=== PATIENT | female | born 1940 | race Caucasian/White ===

== ENCOUNTER 2017-02-09 11:56 | Emergency (ER) | payer MEDICARE, OTHER ==
[~2017-02-09 11:56] MED LIST: ELIQUIS5 MG PO; LEVAQUIN750 MG PO; PREDNISONE5 M1 PO
[2017-02-09 14:01] LABS: HEMOGLOBIN 15.1 gm/dl (12.3-15.3); RED BLOOD COUNT 4.39 M/UL (4.00-5.10); WHITE BLOOD COUNT 6.7 K/UL (4.5-11.0)
== END 2017-02-09 17:42 | disposition home or self-care (01) ==
LOC: ER1 11:56
PROVIDERS: Physician Assistant
DX: J18.9 Pneumonia, unspecified organism (principal); E11.9 Type 2 diabetes mellitus without complications; I10 Essential (primary) hypertension; J44.9 Chronic obstructive pulmonary disease, unspecified; I48.91 Unspecified atrial fibrillation; I25.2 Old myocardial infarction; M19.90 Unspecified osteoarthritis, unspecified site; Z87.891 Personal history of nicotine dependence; Z79.1 Long term (current) use of non-steroidal anti-inflammatories (NSAID); Z79.82 Long term (current) use of aspirin; Z79.899 Other long term (current) drug therapy
CPT/HCPCS: 36415; 71020; 80053; 81001; 82550; 82553; 83690; 83874; 84484; 85025; 93005; 94664; 96374; 99284; J1885

== ENCOUNTER 2020-12-27 16:57 | Inpatient (IN) | payer MEDICARE, OTHER ==
[~2020-12-27] VITALS: Ht 165.1 cm; Wt 120.7 kg
[~2020-12-27 16:57] MED LIST changes: +ALBUTEROL0.63 MG/3 INH; +ALBUTEROL2.5 MG/3 M INH; +ASPIR 8181 MG PO; +AUGMENTIN 875-1 EACH PO; +AZITHROMYCIN250 MG PO; +BACTRIM DS TAB1 EACH PO; +CEFDINIR300 MG PO; +CLARITIN10 MG PO; +CRESTOR5 MG PO; +ELIQUIS 5 MG TAB5 MG PO; +IRON18 MG PO; +JANUMET 50-5001 EACH PO; +KLOR-CON 1010 MEQ PO; +LANTUS INS100 UTS/M1 SC; +LASIX20 MG PO; -LEVAQUIN750 MG PO; +LOPRESSOR 25 MG25 MG PO; +MEDROL4 MG PO; +MIRALAX17 GM PO; +MYCOSTATIN CREA15 GM TOP; +MYRBETRIQ25 MG PO; +NEURONTIN 100100 MG PO; +NORCO 5-325 TA1 EACH PO; +OMNICEF 300 MG300 MG PO; -PREDNISONE5 M1 PO; +SINGULAIR10 MG PO; +SYMBICORT 16010.2 GM INH; +ULTRAM50 MG PO; +VALSARTAN320 MG PO; +VENTOLIN HFA 66.7 GM INH; +VIT PO; +VITAMIN B PO; +VITAMIN B-122500 MCG SL; +VOLTAREN100 GM TP; +ZANTAC150 MG PO; +ZOFRAN ODT 4 MG4 MG PO
[2020-12-27 19:14] LABS: HEMOGLOBIN 17.9 gm/dl (12.3-15.3)
[2020-12-27 19:36] LABS: BUN/CREATININE RATIO 18 (0-10)
[2020-12-27] MEDS ORDERED: LIORESAL TAB 1010 MG PO (23:56)
--- NOTE | 2020-12-28 17:08 | NUR ---
ROOM AIR SAT 88%
[2020-12-28 18:31] LABS: HEMOGLOBIN 16.9 gm/dl (12.3-15.3); RED BLOOD COUNT 4.76 M/UL (4.00-5.10); WHITE BLOOD COUNT 8.1 K/UL (4.5-11.0)
[2020-12-28 18:49] LABS: BUN/CREATININE RATIO 22 (0-10)
[2020-12-29 02:22] LABS: HEMOGLOBIN 16.3 gm/dl (12.3-15.3); RED BLOOD COUNT 4.56 M/UL (4.00-5.10); WHITE BLOOD COUNT 7.3 K/UL (4.5-11.0)
[2020-12-30 04:08] LABS: HEMOGLOBIN 15.9 gm/dl (12.3-15.3); RED BLOOD COUNT 4.52 M/UL (4.00-5.10)
[2020-12-30 04:35] LABS: WHITE BLOOD COUNT 11.2 K/UL (4.5-11.0)
[2020-12-30 11:07] LABS: HEMOGLOBIN 16.2 gm/dl (12.3-15.3); RED BLOOD COUNT 4.59 M/UL (4.00-5.10); WHITE BLOOD COUNT 8.4 K/UL (4.5-11.0)
[2020-12-31 03:37] LABS: BUN/CREATININE RATIO 29 (0-10)
[2020-12-31 03:42] LABS: RED BLOOD COUNT 4.52 M/UL (4.00-5.10); WHITE BLOOD COUNT 6.4 K/UL (4.5-11.0)
[2021-01-02 06:25] LABS: HEMOGLOBIN 16.7 gm/dl (12.3-15.3); RED BLOOD COUNT 4.74 M/UL (4.00-5.10); WHITE BLOOD COUNT 7.3 K/UL (4.5-11.0)
--- NOTE | 2021-01-02 20:27 | NUR ---
DAUGHTER, MYSELF, AND SHAN QUINTERO HAVE ALL TRIED TO GET PATIENTT TO DRINK [employer] AND PATIENT WILL NOT TAKE
[2021-01-03 09:11] LABS: RED BLOOD COUNT 4.51 M/UL (4.00-5.10)
[2021-01-03 09:15] LABS: WHITE BLOOD COUNT 10.1 K/UL (4.5-11.0)
[2021-01-03 09:32] LABS: BUN/CREATININE RATIO 32 (0-10)
[2021-01-04 06:37] LABS: HEMOGLOBIN 16.1 gm/dl (12.3-15.3); RED BLOOD COUNT 4.59 M/UL (4.00-5.10)
[2021-01-04 06:38] LABS: WHITE BLOOD COUNT 6.2 K/UL (4.5-11.0)
[2021-01-04 07:03] LABS: BUN/CREATININE RATIO 28 (0-10)
[2021-01-05] MEDS ORDERED: DOXYCYCLINE HY100 M2 PO (12:23)
== END 2021-01-05 17:17 | DRG 91 ==
LOC: ER1 16:57 → PROG CARE 21:18 → CDU 21:18 → MED SURG 4 21:18 → PROG CARE 23:01 → MED SURG 4 12-29 20:21
PROVIDERS: Internal Medicine; Student in an Organized Health Care Education/Training Program; ADMIT Internal Medicine
DX: G92 Toxic encephalopathy (principal); J96.21 Acute and chronic respiratory failure with hypoxia; J96.22 Acute and chronic respiratory failure with hypercapnia; N17.9 Acute kidney failure, unspecified; J44.1 Chronic obstructive pulmonary disease with (acute) exacerbation; I48.19 Other persistent atrial fibrillation; I50.32 Chronic diastolic (congestive) heart failure; Z20.822 Contact with and (suspected) exposure to COVID-19; Z68.41 Body mass index [BMI] 40.0-44.9, adult; N30.90 Cystitis, unspecified without hematuria; B96.20 Unspecified Escherichia coli [E. coli] as the cause of diseases classified elsewhere; G47.33 Obstructive sleep apnea (adult) (pediatric); E86.0 Dehydration; F03.90 Unspecified dementia, unspecified severity, without behavioral disturbance, psychotic disturbance, mood disturbance, and anxiety; K21.9 Gastro-esophageal reflux disease without esophagitis; G89.4 Chronic pain syndrome; Z79.01 Long term (current) use of anticoagulants; I11.0 Hypertensive heart disease with heart failure; E78.5 Hyperlipidemia, unspecified; Z90.49 Acquired absence of other specified parts of digestive tract; Z98.890 Other specified postprocedural states; D75.1 Secondary polycythemia; D75.89 Other specified diseases of blood and blood-forming organs; M19.90 Unspecified osteoarthritis, unspecified site; E11.40 Type 2 diabetes mellitus with diabetic neuropathy, unspecified; Z79.4 Long term (current) use of insulin; Z87.891 Personal history of nicotine dependence; M62.838 Other muscle spasm
CPT/HCPCS: ECHO; 0240U; 36415; 36600; 70450; 71045; 71250; 72125; 72192; 80048; 80053; 80307; 81001; 82140; 82550; 82553; 82607; 82746; 82803; 82962; 83036; 83605; 83690; 83874; 83880; 84439; 84443; 84484; 85025; 85027; 86140; 87040; 87077; 87086; 87186; 93005; 93306; 94664; 94760; 96374; 96375; 96376; 97110; 97110-GP-CQ; 97162; 97166; 97530; 97530-GP-CQ; 97535; 99285; C9113; J0696; J1885; J1940; J2270; J2405; J2765; U0002

== ENCOUNTER 2021-02-11 13:56 | Emergency (ER) | payer MEDICARE, OTHER ==
[~2021-02-11 13:56] MED LIST changes: +DOXYCYCLINE HY100 M2 PO; +LIORESAL TAB 1010 MG PO
[2021-02-11 14:57] LABS: RED BLOOD COUNT 4.53 M/UL (4.00-5.10); WHITE BLOOD COUNT 5.4 K/UL (4.5-11.0)
[2021-02-11 15:15] LABS: BUN/CREATININE RATIO 14 (0-10)
== END 2021-02-11 20:42 | disposition home or self-care (01) ==
LOC: ER1 13:56
PROVIDERS: Family Medicine
DX: J90 Pleural effusion, not elsewhere classified (principal); I48.20 Chronic atrial fibrillation, unspecified; J44.9 Chronic obstructive pulmonary disease, unspecified; E11.9 Type 2 diabetes mellitus without complications; I11.0 Hypertensive heart disease with heart failure; I50.32 Chronic diastolic (congestive) heart failure; Z79.01 Long term (current) use of anticoagulants; Z79.899 Other long term (current) drug therapy; Z99.81 Dependence on supplemental oxygen; W18.30XA Fall on same level, unspecified, initial encounter; Y92.002 Bathroom of unspecified non-institutional (private) residence as the place of occurrence of the external cause
CPT/HCPCS: 71045; 80053; 82550; 82553; 83874; 84484; 85025; 93005; 99284

== ENCOUNTER → 2021-04-05 | Outpatient (CLI) | payer MEDICARE, OTHER ==
[2021-04-05 13:01] LABS: HEMOGLOBIN 16.3 gm/dl (12.3-15.3); RED BLOOD COUNT 4.54 M/UL (4.00-5.10); WHITE BLOOD COUNT 7.1 K/UL (4.5-11.0)
[2021-04-05 13:23] LABS: BUN/CREATININE RATIO 24 (0-10)
[2021-04-06 11:14] LABS: CREATININE, URINE 51.4 mg/dL (Not Estab.)
[2021-04-06 17:09] LABS: CHOLESTEROL, TOTAL 207 mg/dL (100-199); HDL SIZE 10.2 nm (>=9.2); HDL-C 67 mg/dL (>39); HDL-P (TOTAL) 34.7 umol/L (>=30.5); LARGE HDL-P 11.1 umol/L (>=4.8); LARGE VLDL-P 2.5 nmol/L (<=2.7); LDL SIZE 21.3 nm (>20.5); LDL SIZE 21.3 nm (>=20.8); LDL-C 123 mg/dL (0-99); LDL-P 1228 nmol/L (<1000); LP-IR SCORE <25 (<=45); SMALL LDL-P 328 nmol/L (<=527); TRIGLYCERIDES 94 mg/dL (0-149); VLDL SIZE 47.2 nm (<=46.6)
== END ==
LOC: LAB 11:13
PROVIDERS: Emergency Medicine
DX: Z00.01 Encounter for general adult medical examination with abnormal findings (principal); E11.65 Type 2 diabetes mellitus with hyperglycemia; E78.2 Mixed hyperlipidemia; I48.20 Chronic atrial fibrillation, unspecified; R06.02 Shortness of breath; N18.30 Chronic kidney disease, stage 3 unspecified; G47.13 Recurrent hypersomnia
CPT/HCPCS: 80053; 80061; 82043; 82570; 83036; 83704; 84443; 84550; 85025

== ENCOUNTER 2021-07-31 10:46 | Emergency (ER) | payer MEDICARE, OTHER ==
[2021-07-31 12:16] LABS: RED BLOOD COUNT 4.79 M/UL (4.00-5.10); WHITE BLOOD COUNT 5.7 K/UL (4.5-11.0)
[2021-07-31 12:48] LABS: BUN/CREATININE RATIO 18 (0-10)
[2021-07-31] MEDS ORDERED: OMNICEF 300 MG300 MG PO (17:00)
== END 2021-07-31 20:40 | disposition home or self-care (01) ==
LOC: ER1 10:46
PROVIDERS: Physician Assistant Medical
DX: N30.90 Cystitis, unspecified without hematuria (principal); M54.6 Pain in thoracic spine; R91.8 Other nonspecific abnormal finding of lung field; E11.9 Type 2 diabetes mellitus without complications; I10 Essential (primary) hypertension; J45.909 Unspecified asthma, uncomplicated
CPT/HCPCS: 36600; 71045; 80053; 81001; 82550; 82553; 82803; 83605; 83690; 83874; 84484; 85025; 87086; 93005; 96374; 99284; J0696; Q9967

== ENCOUNTER 2021-10-22 11:28 | Emergency (ER) | payer MEDICARE, OTHER ==
[2021-10-22 13:26] LABS: HEMOGLOBIN 16.9 gm/dl (12.3-15.3); RED BLOOD COUNT 5.03 M/UL (4.00-5.10); WHITE BLOOD COUNT 6.5 K/UL (4.5-11.0)
[2021-10-22 13:55] LABS: BUN/CREATININE RATIO 16 (0-10)
[2021-10-22] MEDS ORDERED: OMNICEF 300 MG300 MG PO (20:35)
[2021-10-22] MEDS ORDERED: HYDROCODON-ACE1 EAC4 PO (20:35)
== END 2021-10-22 23:00 | disposition home or self-care (01) ==
LOC: ER1 11:28
PROVIDERS: Emergency Medicine
DX: N39.0 Urinary tract infection, site not specified (principal); I11.9 Hypertensive heart disease without heart failure; E11.9 Type 2 diabetes mellitus without complications; Z20.822 Contact with and (suspected) exposure to COVID-19
CPT/HCPCS: 71045; 71250; 80053; 81001; 82550; 82553; 83874; 84484; 85025; 93005; 99285; Q9967; U0002

== ENCOUNTER 2022-01-08 08:17 | Observation (INO) | payer MEDICARE, OTHER ==
[~2022-01-08] VITALS: Ht 160 cm; Wt 113.4 kg
[~2022-01-08 08:17] MED LIST changes: +HYDROCODON-ACE1 EAC4 PO; -KLOR-CON 1010 MEQ PO; -LIORESAL TAB 1010 MG PO; +POTASSIUM CHLO10 MEQ PO
[2022-01-08 09:06] LABS: HEMOGLOBIN 15.6 gm/dl (12.3-15.3); RED BLOOD COUNT 4.37 M/UL (4.00-5.10); WHITE BLOOD COUNT 6.2 K/UL (4.5-11.0)
[2022-01-08 09:39] LABS: BUN/CREATININE RATIO 23 (0-10)
[2022-01-08] MEDS ORDERED: CRESTOR 10 MG T10 MG PO (12:57)
[2022-01-08] MEDS ORDERED: MYRBETRIQ25 MG PO (12:58)
[2022-01-08] MEDS ORDERED: SINGULAIR10 MG PO (12:58)
[2022-01-08] MEDS ORDERED: ELIQUIS5 MG PO (12:59)
[2022-01-08] MEDS ORDERED: ALBUTEROL1.25 MG/3 INH (13:00)
[2022-01-08] MEDS ORDERED: LIORESAL TAB 1010 MG PO (23:56)
[2022-01-09 06:47] LABS: HEMOGLOBIN 15.7 gm/dl (12.3-15.3); RED BLOOD COUNT 4.42 M/UL (4.00-5.10); WHITE BLOOD COUNT 6.2 K/UL (4.5-11.0)
[2022-01-10 04:09] LABS: HEMOGLOBIN 15.6 gm/dl (12.3-15.3); RED BLOOD COUNT 4.43 M/UL (4.00-5.10); WHITE BLOOD COUNT 7.2 K/UL (4.5-11.0)
[2022-01-10] MEDS ORDERED: LASIX20 MG PO (09:45)
--- NOTE | 2022-01-10 13:15 | NUR ---
CALLED EMS AT 1300 CALLED HER SON ADILENE TO LET HIM KNOW SHE WAS COMING HOME AT 1305 CALLED JOSH HERNANDEZ AND GAVE REPORT TO STACEY AT 1310.
== END 2022-01-10 14:25 | disposition home health service (06) ==
LOC: ER1 08:17 → MED SURG 4 10:36 → CDU 10:36 → MED SURG 4 12:57
PROVIDERS: Emergency Medicine; Physician Assistant; ADMIT Internal Medicine
DX: I11.0 Hypertensive heart disease with heart failure (principal); I50.33 Acute on chronic diastolic (congestive) heart failure; E11.9 Type 2 diabetes mellitus without complications; Z20.822 Contact with and (suspected) exposure to COVID-19
CPT/HCPCS: ECHO; 0240U; 36415; 70450; 71045; 80048; 80053; 82550; 82553; 82962; 83735; 83880; 84484; 85025; 85027; 93005; 93306; 94664; 94760; 96374; 96376; 97162; 97530; 99285; G0378; J1940

== ENCOUNTER 2022-01-31 12:48 | Inpatient (IN) | payer MEDICARE, OTHER ==
[~2022-01-31] VITALS: Ht 160 cm; Wt 109.8 kg
[~2022-01-31 12:48] MED LIST changes: +ALBUTEROL1.25 MG/3 INH; +CRESTOR 10 MG T10 MG PO; +LIORESAL TAB 1010 MG PO; +PROAIR HFA8.5 GM INH; -VENTOLIN HFA 66.7 GM INH
[2022-01-31 13:35] LABS: HEMOGLOBIN 16.6 gm/dl (12.3-15.3); RED BLOOD COUNT 4.64 M/UL (4.00-5.10); WHITE BLOOD COUNT 6.1 K/UL (4.5-11.0)
[2022-01-31] MEDS ORDERED: FUROSEMIDE20 MG PO (17:30)
[2022-01-31] MEDS ORDERED: LORATADINE10 MG PO (17:33)
[2022-01-31] MEDS ORDERED: SPIRONOLACTONE25 MG PO (17:35)
[2022-02-01 04:47] LABS: HEMOGLOBIN 9.7 gm/dl (12.3-15.3); RED BLOOD COUNT 3.7 M/UL (4.00-5.10); WHITE BLOOD COUNT 10.1 K/UL (4.5-11.0)
--- NOTE | 2022-02-01 11:00 | NUR ---
GAVE ORDERS TO D/C TELE WHILE PATIENT IS IN MRI AT THIS TIME.
[2022-02-02 03:55] LABS: HEMOGLOBIN 16.2 gm/dl (12.3-15.3); RED BLOOD COUNT 4.54 M/UL (4.00-5.10); WHITE BLOOD COUNT 6.3 K/UL (4.5-11.0)
[2022-02-03 02:24] LABS: HEMOGLOBIN 16.8 gm/dl (12.3-15.3); RED BLOOD COUNT 4.74 M/UL (4.00-5.10); WHITE BLOOD COUNT 7.6 K/UL (4.5-11.0)
[2022-02-03 02:58] LABS: BUN/CREATININE RATIO 26 (0-10)
[2022-02-05 03:12] LABS: HEMOGLOBIN 16.5 gm/dl (12.3-15.3); RED BLOOD COUNT 4.47 M/UL (4.00-5.10); WHITE BLOOD COUNT 8.2 K/UL (4.5-11.0)
[2022-02-07 06:54] LABS: HEMOGLOBIN 15.5 gm/dl (12.3-15.3); RED BLOOD COUNT 4.43 M/UL (4.00-5.10); WHITE BLOOD COUNT 6.3 K/UL (4.5-11.0)
[2022-02-07] MEDS ORDERED: DIAMOX 250 MG250 MG PO (10:13)
[2022-02-07] MEDS ORDERED: SYMBICORT 80-41 INHA INH (10:13)
[2022-02-07] MEDS ORDERED: LISINOPRIL5 MG PO (10:24)
[2022-02-07] MEDS ORDERED: GLUCOPHAGE 500500 MG PO (10:24)
[2022-02-07] MEDS ORDERED: ASPIRIN EC81 MG PO (10:24)
[2022-02-07] MEDS ORDERED: AMLODIPINE BES2.5 MG PO (10:39)
[2022-02-07] MEDS ORDERED: ELIQUIS5 MG PO (10:56)
== END 2022-02-07 14:46 | disposition home health service (06) | DRG 291 ==
LOC: ER1 12:48 → M/S 16:17 → CDU 16:17 → M/S 16:17
PROVIDERS: Internal Medicine; Internal Medicine Infectious Disease; Student in an Organized Health Care Education/Training Program; ADMIT Internal Medicine
DX: I11.0 Hypertensive heart disease with heart failure (principal); Z20.822 Contact with and (suspected) exposure to COVID-19; I50.33 Acute on chronic diastolic (congestive) heart failure; J96.21 Acute and chronic respiratory failure with hypoxia; G45.9 Transient cerebral ischemic attack, unspecified; I48.20 Chronic atrial fibrillation, unspecified; N17.9 Acute kidney failure, unspecified; L03.116 Cellulitis of left lower limb; L03.115 Cellulitis of right lower limb; Z68.41 Body mass index [BMI] 40.0-44.9, adult; E66.9 Obesity, unspecified; R47.81 Slurred speech; J44.9 Chronic obstructive pulmonary disease, unspecified; D64.9 Anemia, unspecified; I16.0 Hypertensive urgency; K21.9 Gastro-esophageal reflux disease without esophagitis; E86.0 Dehydration; R53.81 Other malaise; I35.0 Nonrheumatic aortic (valve) stenosis; I27.20 Pulmonary hypertension, unspecified; E11.9 Type 2 diabetes mellitus without complications; Z79.01 Long term (current) use of anticoagulants; Z79.82 Long term (current) use of aspirin; Z99.81 Dependence on supplemental oxygen; Z87.891 Personal history of nicotine dependence; Z82.49 Family history of ischemic heart disease and other diseases of the circulatory system; Z99.3 Dependence on wheelchair; I25.2 Old myocardial infarction
CPT/HCPCS: 36415; 51702; 70450; 70544; 70551; 71045; 80048; 80053; 80202; 80307; 81001; 82550; 82553; 82607; 82746; 82803; 82962; 83605; 83735; 83880; 84100; 84439; 84443; 84484; 85025; 86140; 87040; 87086; 93005; 93880; 94640; 94664; 94760; 96374; 96375; 96376; 97110-GP-CQ; 97162; 97530; 97530-GP-CQ; 99285; G0378; J0461; J0692; J1120; J1940; J3370; J3475; J7070; Q9967

== ENCOUNTER 2022-04-17 12:53 | Emergency (ER) | payer MEDICARE, OTHER ==
[~2022-04-17 12:53] MED LIST changes: +AMLODIPINE BES2.5 MG PO; +ASPIRIN EC81 MG PO; +DIAMOX 250 MG250 MG PO; +FUROSEMIDE20 MG PO; +GLUCOPHAGE 500500 MG PO; +LISINOPRIL5 MG PO; +LORATADINE10 MG PO; +SPIRONOLACTONE25 MG PO; +SYMBICORT 80-41 INHA INH
[2022-04-17 13:38] LABS: HEMOGLOBIN 15.1 gm/dl (12.3-15.3); RED BLOOD COUNT 4.43 M/UL (4.00-5.10); WHITE BLOOD COUNT 8.8 K/UL (4.5-11.0)
[2022-04-17] MEDS ORDERED: MACROBID 100 M100 MG PO (21:37)
== END 2022-04-17 22:18 | disposition home or self-care (01) ==
LOC: ER1 12:53
PROVIDERS: Physician Assistant
DX: I11.0 Hypertensive heart disease with heart failure (principal); E11.65 Type 2 diabetes mellitus with hyperglycemia; R30.0 Dysuria; E78.5 Hyperlipidemia, unspecified; I50.9 Heart failure, unspecified; J44.9 Chronic obstructive pulmonary disease, unspecified
CPT/HCPCS: 80053; 81001; 82550; 82553; 84484; 85025; 93005; 99284